=== PATIENT | female | born 1940 | race Caucasian/White ===

== ENCOUNTER 2023-07-15 06:16 | Inpatient (IN) ==
[2023-07-15] MEDS ORDERED: Ondansetron ODT 4 mg TAB 4 MG TAB SL ONE (06:43)
[2023-07-15] MEDS ORDERED: Morphine 4 MG/ML VIAL (1 ml) IV ONE (07:59)
[2023-07-15 08:43] LABS: INR 1.05 (0.83-1.13)
[2023-07-15 08:46] LABS: Hematocrit 31.5 % (35-45); Hemoglobin 11.1 g/dL (11.5-14.3); Mean Corpuscular Hemoglobin 33.2 pg (27-33); Mean Corpuscular Hgb Conc 35.1 g/dL (31-36); Mean Corpuscular Volume 94.6 fL (80-97); Red Blood Count 3.33 10^6/uL (3.63-4.92); Red Cell Distribution Width 14.8 % (12-17); White Blood Count 6.9 10^3/uL (3.8-11.8)
[2023-07-15 08:53] LABS: Urine Appearance Clear; Urine Bilirubin Negative (Negative); Urine Blood Negative (Negative); Urine Color Yellow; Urine Glucose Negative (Negative); Urine Ketones Negative (Negative); Urine Nitrite Negative (Negative); Urine Protein Negative (Negative); Urine Specific Gravity 1.013 (1.002-1.030); Urine Urobilinogen Negative (Negative)
[2023-07-15 08:55] LABS: Urine Bacteria Absent (Absent); Urine Red Blood Cell Trace(0-2/hpf) (Absent); Urine Squamous Epithelial Cell Present (Absent); Urine White Blood Cell Trace(0-5/hpf) (Absent)
[2023-07-15 09:04] LABS: Albumin 3.5 g/dL (3.2-5.2); Albumin/Globulin Ratio 1.5 (1-3); Calcium 8.7 mg/dL (8.6-10.3); Creatinine, Serum 1.17 mg/dL (0.51-0.95); Globulin 2.3 g/dL (2-4); Total Bilirubin 1.3 mg/dL (0.2-1.0); Total Protein 5.8 g/dL (6.4-8.9); eGFR CKD-EPI 46.9 (>60)
[2023-07-15] MEDS ORDERED: Lactated Ringers 1000 ml BAG 1,000 ML IV ONE (09:11)
[2023-07-15 09:16] LABS: ABS Eosinophils 0.1 10^3/uL (0.0-0.5); ABS Lymphocytes 0.9 10^3/uL (1.0-4.8); ABS Monocytes 1.1 10^3/uL (0.0-0.9); ABS Neutrophils 4.8 10^3/uL (1.5-7.6); ABS Nucleated RBC 0.02 10^3/ul; Eosinophil % 1.6 %; Lymphocyte % 13.3 %; Mean Platelet Volume 9.7 fL (7.5-11.2); Nucleated Red Blood Cells % 0.3 /100 WBC (0.0-0.4); Platelet Count 75 10^3/uL (150-450)
[2023-07-15] MEDS: Cholecalciferol (VIT D3) 1,000 unit TAB PO SCH (13:24)
[2023-07-15] MEDS: Ondansetron 4 mg VIAL 2 MG/ML 2 ml VIAL IV PRN (17:32)
[2023-07-15] MEDS: Morphine 2 MG/ML SYRINGE IV PRN (17:35)
[2023-07-15] MEDS: Polyethylene Glycol 3350 17 GM PACKET PO SCH (20:36)
[2023-07-16 05:52] LABS: ABS Eosinophils 0.1 10^3/uL (0.0-0.5); ABS Lymphocytes 1.3 10^3/uL (1.0-4.8); ABS Monocytes 1.2 10^3/uL (0.0-0.9); ABS Neutrophils 4.6 10^3/uL (1.5-7.6); Eosinophil % 1.8 %; Hematocrit 28.8 % (35-45); Hemoglobin 10.1 g/dL (11.5-14.3); Lymphocyte % 17.9 %; Mean Corpuscular Hemoglobin 33.4 pg (27-33); Mean Corpuscular Hgb Conc 35.1 g/dL (31-36); Mean Corpuscular Volume 95.2 fL (80-97); Mean Platelet Volume 9.5 fL (7.5-11.2); Platelet Count 70 10^3/uL (150-450); Red Blood Count 3.03 10^6/uL (3.63-4.92); Red Cell Distribution Width 14.9 % (12-17); White Blood Count 7.3 10^3/uL (3.8-11.8)
[2023-07-16] MEDS: Ondansetron 4 mg VIAL 2 MG/ML 2 ml VIAL IV PRN ×3 (06:05→18:34)
[2023-07-16 06:08] LABS: Albumin 3.3 g/dL (3.2-5.2); Albumin/Globulin Ratio 1.7 (1-3); Calcium 8.6 mg/dL (8.6-10.3); Creatinine, Serum 1.2 mg/dL (0.51-0.95); Potassium 4.9 mmol/L (3.5-5.0); Total Bilirubin 1.2 mg/dL (0.2-1.0); Total Protein 5.3 g/dL (6.4-8.9); eGFR CKD-EPI 45.5 (>60)
[2023-07-16] MEDS: Morphine 2 MG/ML SYRINGE IV PRN ×4 (06:08→20:34)
[2023-07-16] MEDS ORDERED: Lactated Ringers 1000 ml BAG 1,000 ML IV ONE (07:16)
[2023-07-16] MEDS: Cholecalciferol (VIT D3) 1,000 unit TAB PO SCH (09:05)
[2023-07-16] MEDS: Magnesium Hydroxide LIQ 30 ML UDC PO PRN (12:12)
[2023-07-16] MEDS: Enoxaparin 40 MG/0.4 ML SYR SUBCUT SCH (16:35)
[2023-07-16] MEDS: Polyethylene Glycol 3350 17 GM PACKET PO SCH (20:29)
[2023-07-16] MEDS ORDERED: Morphine 2 MG/ML SYRINGE IV ONE (23:16)
[2023-07-17] MEDS: Morphine 2 MG/ML SYRINGE IV PRN ×4 (03:01→19:54)
[2023-07-17 06:47] LABS: Calcium 8.5 mg/dL (8.6-10.3); Creatinine, Serum 1.13 mg/dL (0.51-0.95); Potassium 4.9 mmol/L (3.5-5.0); eGFR CKD-EPI 48.9 (>60)
[2023-07-17] MEDS: Ondansetron 4 mg VIAL 2 MG/ML 2 ml VIAL IV PRN ×3 (08:47→19:54)
[2023-07-17] MEDS ORDERED: Morphine ORAL CONCENTRATE 5 MG/0.25 ML ORAL.SYRIN PO PRN (09:30)
[2023-07-17] MEDS: Senna TAB 8.6 mg TAB PO SCH (10:33)
[2023-07-17] MEDS: Cholecalciferol (VIT D3) 1,000 unit TAB PO SCH (10:33)
[2023-07-17] MEDS ORDERED: Morphine ORAL CONCENTRATE 5 MG/0.25 ML ORAL.SYRIN PO SCH (11:30)
[2023-07-17] MEDS: Magnesium Hydroxide LIQ 30 ML UDC PO PRN (15:10)
[2023-07-17] MEDS: Enoxaparin 40 MG/0.4 ML SYR SUBCUT SCH (16:54)
[2023-07-17] MEDS: Polyethylene Glycol 3350 17 GM PACKET PO SCH (20:00)
[2023-07-18] MEDS: Morphine 2 MG/ML SYRINGE IV PRN ×2 (01:23→06:10)
[2023-07-18] MEDS: Ondansetron 4 mg VIAL 2 MG/ML 2 ml VIAL IV PRN ×2 (06:10→12:00)
[2023-07-18] MEDS: Senna TAB 8.6 mg TAB PO SCH (08:22)
[2023-07-18] MEDS: Cholecalciferol (VIT D3) 1,000 unit TAB PO SCH (08:22)
[2023-07-18 10:25] LABS: Calcium 8.3 mg/dL (8.6-10.3); Creatinine, Serum 1.13 mg/dL (0.51-0.95); Potassium 4.9 mmol/L (3.5-5.0); eGFR CKD-EPI 48.9 (>60)
[2023-07-18 12:08] LABS: Total Bilirubin 1.6 mg/dL (0.2-1.0)
[2023-07-18] MEDS ORDERED: NS 0.9% 1000 ml BAG 1,000 ML IV ONE (13:57)
[2023-07-18 14:34] VITALS: BP 131/69
== END 2023-07-18 15:55 | disposition home or self-care (01) | DRG 596 ==
LOC: ED 06:16 → EDHOLD 06:16 → SUATTDRO 11:46 → EDHOLD 13:26 → MED 13:58
PROVIDERS: ADMIT Internal Medicine; ATTEND Hospitalist

== ENCOUNTER 2023-07-25 12:53 | Inpatient (IN) ==
[2023-07-25] MEDS ORDERED: Polyethylene Glycol 3350 17 GM PACKET PO PRN (14:03)
[2023-07-25 14:09] LABS: Hematocrit 31.1 % (35-45); Hemoglobin 10.8 g/dL (11.5-14.3); Mean Corpuscular Hemoglobin 32.8 pg (27-33); Mean Corpuscular Hgb Conc 34.7 g/dL (31-36); Mean Corpuscular Volume 94.4 fL (80-97); Mean Platelet Volume 8.9 fL (7.5-11.2); Platelet Count 62 10^3/uL (150-450); Red Blood Count 3.29 10^6/uL (3.63-4.92); Red Cell Distribution Width 16.7 % (12-17); White Blood Count 10.1 10^3/uL (3.8-11.8)
[2023-07-25] MEDS ORDERED: NS 0.9% 1000 ml BAG 1,000 ML IV SCH ×2 (14:15→20:00)
[2023-07-25 14:21] LABS: Albumin 2.9 g/dL (3.2-5.2); CO2 Carbon Dioxide 19 mmol/L (22-32); Calcium 7.9 mg/dL (8.6-10.3); Chloride 99 mmol/L (101-111); Sodium 131 mmol/L (135-145)
[2023-07-25 14:27] LABS: ALT 58 U/L (7-52); Albumin/Globulin Ratio 1.1 (1-3); Alkaline Phosphatase 384 U/L (35-149); Blood Urea Nitrogen 37 mg/dL (6-24); Creatinine, Serum 0.93 mg/dL (0.51-0.95); Globulin 2.7 g/dL (2-4); Glucose 98 mg/dL (70-100); Total Protein 5.6 g/dL (6.4-8.9); eGFR CKD-EPI 61.7 (>60)
[2023-07-25 14:35] LABS: Anion Gap 13 mmol/L (2-16)
[2023-07-25] MEDS ORDERED: Morphine 2 MG/ML SYRINGE ONE (14:39)
[2023-07-25 14:55] LABS: ABS Lymphocytes 0.8 10^3/uL (1.0-4.8); ABS Monocytes 1.8 10^3/uL (0.0-0.9); ABS Neutrophils 7.5 10^3/uL (1.5-7.6); ABS Nucleated RBC 0.03 10^3/ul; Eosinophil % 0.3 %; Lymphocyte % 7.4 %; Nucleated Red Blood Cells % 0.2 /100 WBC (0.0-0.4); RBC Morphology Normal (Normal)
[2023-07-25 16:12] LABS: Potassium Redraw 4.8 mmol/L (3.5-5.0)
[2023-07-25] MEDS: Morphine 2 MG/ML SYRINGE IV PRN ×2 (20:41→23:23)
[2023-07-25] MEDS: Senna TAB 8.6 mg TAB PO PRN (20:52)
[2023-07-26] MEDS: Morphine 2 MG/ML SYRINGE IV PRN ×4 (00:52→15:54)
[2023-07-26 02:46] LABS: Urine Appearance Clear; Urine Bilirubin Negative (Negative); Urine Blood 1+ (Negative); Urine Color Amber; Urine Glucose Negative (Negative); Urine Ketones Negative (Negative); Urine Nitrite Negative (Negative); Urine Protein Negative (Negative); Urine Specific Gravity 1.018 (1.002-1.030); Urine Urobilinogen Positive (Negative)
[2023-07-26 02:51] LABS: Urine Bacteria 1+ (Absent); Urine Red Blood Cell Trace(0-2/hpf) (Absent); Urine Squamous Epithelial Cell Present (Absent); Urine White Blood Cell Trace(0-5/hpf) (Absent)
[2023-07-26 05:32] LABS: ABS Basophils 0.1 10^3/uL (0.0-0.1); ABS Eosinophils 0.1 10^3/uL (0.0-0.5); ABS Lymphocytes 0.8 10^3/uL (1.0-4.8); ABS Monocytes 1.7 10^3/uL (0.0-0.9); ABS Neutrophils 6.4 10^3/uL (1.5-7.6); ABS Nucleated RBC 0.03 10^3/ul; Eosinophil % 0.8 %; Hematocrit 28.3 % (35-45); Hemoglobin 9.8 g/dL (11.5-14.3); Lymphocyte % 9.2 %; Mean Corpuscular Hemoglobin 32.8 pg (27-33); Mean Corpuscular Hgb Conc 34.5 g/dL (31-36); Mean Platelet Volume 8.4 fL (7.5-11.2); Nucleated Red Blood Cells % 0.3 /100 WBC (0.0-0.4); Platelet Count 51 10^3/uL (150-450); Red Blood Count 2.98 10^6/uL (3.63-4.92); Red Cell Distribution Width 16.8 % (12-17)
[2023-07-26 05:44] LABS: Albumin 2.6 g/dL (3.2-5.2); Albumin/Globulin Ratio 1.1 (1-3); Calcium 7.7 mg/dL (8.6-10.3); Creatinine, Serum 0.72 mg/dL (0.51-0.95); Globulin 2.3 g/dL (2-4); Potassium 4.7 mmol/L (3.5-5.0); Total Bilirubin 4.2 mg/dL (0.2-1.0); Total Protein 4.9 g/dL (6.4-8.9); eGFR CKD-EPI 83.9 (>60)
[2023-07-26] MEDS: Senna TAB 8.6 mg TAB PO PRN (09:20)
[2023-07-26] MEDS: Influenza vaccine *QUAD* *2023-24* 0.5 ML SYRINGE IM ONE ×2 (09:22→19:00)
[2023-07-26] MEDS ORDERED: Sodium Phosphate ADULT ENEMA 133 ML BTL PR ONE (10:18)
[2023-07-26] MEDS ORDERED: NS 0.9% 1000 ml BAG 1,000 ML IV SCH (10:30)
[2023-07-26] MEDS: cefTRIAXone 1 gm/50 mL D5W 1 GM/50 ML BAG IV SCH (13:30)
[2023-07-26] MEDS: metroNIDAZOLE IV 500 MG/100ML 500 MG/100 ML BAG IVPB SCH ×2 (14:37→21:17)
[2023-07-26] MEDS: D5LR 1000 ml BAG 1,000 ML IV SCH (16:13)
[2023-07-26 16:17] LABS: Urine Appearance Clear; Urine Bilirubin 1+ (Negative); Urine Blood 1+ (Negative); Urine Color Amber; Urine Glucose Negative (Negative); Urine Ketones Trace (Negative); Urine Nitrite Negative (Negative); Urine Protein Negative (Negative); Urine Specific Gravity 1.017 (1.002-1.030); Urine Urobilinogen Positive (Negative)
[2023-07-26 16:35] LABS: Urine Bacteria Absent (Absent); Urine Red Blood Cell 2+(6-10/hpf) (Absent); Urine Squamous Epithelial Cell Present (Absent); Urine White Blood Cell 1+(6-10/hpf) (Absent)
[2023-07-27] MEDS: D5LR 1000 ml BAG 1,000 ML IV SCH ×2 (01:29→15:19)
[2023-07-27] MEDS: metroNIDAZOLE IV 500 MG/100ML 500 MG/100 ML BAG IVPB SCH ×3 (03:55→20:01)
[2023-07-27 06:29] LABS: ABS Basophils 0.1 10^3/uL (0.0-0.1); ABS Eosinophils 0.1 10^3/uL (0.0-0.5); ABS Lymphocytes 0.6 10^3/uL (1.0-4.8); ABS Monocytes 1.4 10^3/uL (0.0-0.9); ABS Neutrophils 5.5 10^3/uL (1.5-7.6); ABS Nucleated RBC 0.02 10^3/ul; Eosinophil % 0.8 %; Hematocrit 26.5 % (35-45); Hemoglobin 9.2 g/dL (11.5-14.3); Lymphocyte % 7.7 %; Mean Corpuscular Hemoglobin 33.1 pg (27-33); Mean Corpuscular Hgb Conc 34.8 g/dL (31-36); Mean Platelet Volume 8.2 fL (7.5-11.2); Nucleated Red Blood Cells % 0.3 /100 WBC (0.0-0.4); Platelet Count 48 10^3/uL (150-450); Red Blood Count 2.78 10^6/uL (3.63-4.92); Red Cell Distribution Width 17.1 % (12-17); White Blood Count 7.7 10^3/uL (3.8-11.8)
[2023-07-27 06:50] LABS: Albumin 2.5 g/dL (3.2-5.2); Albumin/Globulin Ratio 1.3 (1-3); Calcium 7.8 mg/dL (8.6-10.3); Creatinine, Serum 0.74 mg/dL (0.51-0.95); Potassium 3.7 mmol/L (3.5-5.0); Total Bilirubin 3.9 mg/dL (0.2-1.0); Total Protein 4.5 g/dL (6.4-8.9); eGFR CKD-EPI 81.2 (>60)
[2023-07-27] MEDS: Morphine 2 MG/ML SYRINGE IV PRN ×6 (07:44→15:24)
[2023-07-27 10:56] VITALS: BP 133/76
[2023-07-27] MEDS: cefTRIAXone 1 gm/50 mL D5W 1 GM/50 ML BAG IV SCH (11:57)
[2023-07-28] MEDS: D5LR 1000 ml BAG 1,000 ML IV SCH ×3 (00:58→22:56)
[2023-07-28] MEDS: Morphine 2 MG/ML SYRINGE IV PRN ×4 (01:21→09:58)
[2023-07-28] MEDS: metroNIDAZOLE IV 500 MG/100ML 500 MG/100 ML BAG IVPB SCH ×3 (04:09→20:00)
[2023-07-28 06:20] LABS: Hematocrit 27.9 % (35-45); Hemoglobin 9.7 g/dL (11.5-14.3); Mean Corpuscular Hemoglobin 32.8 pg (27-33); Mean Corpuscular Hgb Conc 34.6 g/dL (31-36); Mean Corpuscular Volume 94.7 fL (80-97); Mean Platelet Volume 8.5 fL (7.5-11.2); Platelet Count 46 10^3/uL (150-450); Red Blood Count 2.95 10^6/uL (3.63-4.92); Red Cell Distribution Width 17.7 % (12-17); White Blood Count 8.3 10^3/uL (3.8-11.8)
[2023-07-28 08:54] LABS: RBC Morphology Normal (Normal)
[2023-07-28 08:55] LABS: ABS Eosinophils 0.1 10^3/uL (0.0-0.5); ABS Lymphocytes 0.7 10^3/uL (1.0-4.8); ABS Monocytes 1.3 10^3/uL (0.0-0.9); ABS Neutrophils 6.2 10^3/uL (1.5-7.6); ABS Nucleated RBC 0.02 10^3/ul; Eosinophil % 0.7 %; Lymphocyte % 8.5 %; Nucleated Red Blood Cells % 0.2 /100 WBC (0.0-0.4)
[2023-07-28] MEDS: cefTRIAXone 1 gm/50 mL D5W 1 GM/50 ML BAG IV SCH (10:45)
[2023-07-28] MEDS: Lidocaine PATCH 5% PATCH TRANSDERM SCH (16:10)
[2023-07-28] MEDS: Morphine ORAL CONCENTRATE 5 MG/0.25 ML ORAL.SYRIN SL PRN ×2 (18:13→20:22)
[2023-07-29] MEDS: metroNIDAZOLE IV 500 MG/100ML 500 MG/100 ML BAG IVPB SCH ×3 (03:55→20:19)
[2023-07-29] MEDS: Morphine ORAL CONCENTRATE 5 MG/0.25 ML ORAL.SYRIN SL PRN ×2 (09:14→18:45)
[2023-07-29] MEDS: D5LR 1000 ml BAG 1,000 ML IV SCH (09:24)
[2023-07-29] MEDS ORDERED: Ondansetron ODT 4 mg TAB 4 MG TAB SL PRN (10:44)
[2023-07-29] MEDS ORDERED: D5LR 1000 ml BAG 1,000 ML IV SCH (10:44)
[2023-07-29] MEDS ORDERED: Prochlorperazine 5 mg/ml 2 ml VIAL (10 mg) IV PRN (10:45)
[2023-07-29] MEDS: cefTRIAXone 1 gm/50 mL D5W 1 GM/50 ML BAG IV SCH (11:00)
[2023-07-29] MEDS: Lidocaine PATCH 5% PATCH TRANSDERM SCH (15:42)
[2023-07-29] MEDS: Morphine ORAL CONCENTRATE 5 MG/0.25 ML ORAL.SYRIN SL SCH ×2 (15:42→20:20)
[2023-07-30] MEDS: Morphine ORAL CONCENTRATE 5 MG/0.25 ML ORAL.SYRIN SL SCH ×6 (00:09→20:52)
[2023-07-30] MEDS: metroNIDAZOLE IV 500 MG/100ML 500 MG/100 ML BAG IVPB SCH ×3 (04:04→21:01)
[2023-07-30] MEDS: cefTRIAXone 1 gm/50 mL D5W 1 GM/50 ML BAG IV SCH (13:16)
[2023-07-30] MEDS: Ondansetron ODT 4 mg TAB 4 MG TAB SL SCH ×3 (13:16→20:52)
[2023-07-30] MEDS ORDERED: Atropine 1% (ORAL/SL) 15 ML BTL SL PRN (14:47)
[2023-07-30] MEDS: Lidocaine PATCH 5% PATCH TRANSDERM SCH (17:34)
[2023-07-31] MEDS: Morphine ORAL CONCENTRATE 5 MG/0.25 ML ORAL.SYRIN SL SCH ×3 (00:21→04:00)
[2023-07-31] MEDS: Ondansetron ODT 4 mg TAB 4 MG TAB SL SCH ×3 (00:23→04:09)
[2023-07-31] MEDS: metroNIDAZOLE IV 500 MG/100ML 500 MG/100 ML BAG IVPB SCH (03:53)
== END 2023-07-31 06:30 | disposition expired | DRG 435 ==
LOC: CHOA 12:53 → SUATTDRO 17:05 → MED 17:05
PROVIDERS: ADMIT Internal Medicine Hematology & Oncology; ATTEND Pediatrics